=== PATIENT | female | born 1975 ===

== ENCOUNTER 2018-09-20 10:06 | Emergency (ER) | payer OTHER ==
[2018-09-20 10:12] VITALS: BMI 28.3
[2018-09-20 11:29] LABS: SQUAMOUS EPITHIAL 2 /hpf (0-5); URINE BILIRUBIN NEGATIVE (NEGATIVE); URINE BLOOD NEGATIVE (NEGATIVE); URINE CLARITY Clear (Clear); URINE COLOR Yellow (YELLOW); URINE GLUCOSE (UA) NORMAL (Normal); URINE LEUKOCYTE ESTERASE NEG Leu/uL (Negative); URINE PROTEIN NEGATIVE (NEGATIVE); URINE UROBILINOGEN NORMAL mg/dL (0.2-1.0)
--- NOTE | 2018-09-20 11:48 | C.PDOC ---
History Of Present Illness 42 y/o female presents to the ED complaining of pelvic pain for 1 week. Associated with 1 episode of clear vaginal discharge. She denies any vaginal bleeding, dysuria, fevers, or chills. Patient also reports increased urinary frequency. LMP was 08/09/18 however patient states normally her menstrual cycles are irregular. Pain is localized below the bladder area, sharp, intermittent, and crampy in nature. Time Seen by Provider: 09/20/18 10:44 Chief Complaint (Nursing): Female Genitourinary History Per: Patient History/Exam Limitations: no limitations Onset/Duration Of Symptoms: Days Current Symptoms Are (Timing): Still Present Past Medical History Reviewed: Historical Data, Nursing Documentation, Vital Signs Vital Signs: Last Vital Signs Temp 98.4 F 09/20/18 10:12 Pulse 97 H 09/20/18 10:12 Resp 18 09/20/18 10:12 BP 110/72 09/20/18 10:12 Pulse Ox 98 09/20/18 10:12 - Medical History Other PMH: Prolapsed mitral valve Surgical History: Family History: States: No Known Family Hx - Social History Hx Alcohol Use: Yes Hx Substance Use: No - Immunization History Hx Tetanus Toxoid Vaccination: No Hx Influenza Vaccination: No Hx Pneumococcal Vaccination: No Review Of Systems Except As Marked, All Systems Reviewed And Found Negative. Constitutional: Negative for: Fever, Chills Gastrointestinal: Positive for: Abdominal Pain Genitourinary: Positive for: Vaginal Discharge (x 1). Negative for: Dysuria, Vaginal Bleeding Physical Exam - Physical Exam Appears: Non-toxic, No Acute Distress Skin: Normal Color, Warm, Dry Head: Atraumatic, Normacephalic Eye(s): bilateral: Normal Inspection, PERRL, EOMI Oral Mucosa: Moist Neck: Normal ROM, Supple Chest: Symmetrical Cardiovascular: Rhythm Regular, No Murmur Respiratory: Normal Breath Sounds, No Accessory Muscle Use Gastrointestinal/Abdominal: Soft, Tenderness (across suprapubic area), No Guarding, No Rebound Back: Normal Inspection, No CVA Tenderness Pelvic: Normal External Exam, Cervical Motion Tenderness, No Enlarged Uterus Extremity: Bilateral: Atraumatic, Normal Color And Temperature, Normal ROM Neurological/Psych: Oriented x3, Normal Speech ED Course And Treatment O2 Sat by Pulse Oximetry: 98 (RA) Pulse Ox Interpretation: Normal Medical Decision Making Medical Decision Making: Impression: Suprapubic abdominal pain Plan: --Urinalysis --Urine culture --GC/chlamydia --Motrin 600 mg PO Patient will be treated empirically with 1000mg Zithro PO and 250mg IM Rocephin. Advised patient to call in 2-3 days for STI resuts. Patient is agreeable to discharge plan. Disposition Counseled Patient/Family Regarding: Studies Performed, Diagnosis, Need For Followup, Rx Given - [facility]position [facility] Disposition: HOME/ ROUTINE Disposition Time: 12:47 Condition: STABLE Additional Instructions: follow up with your doctor within 2 days call to make an appointment take medications as prescribed return to ER if symptoms worsens or progress Prescriptions: Naproxen [Naprosyn] 500 mg PO BID PRN #16 tab PRN Reason: Pain, Moderate (4-7) Instructions: Acute Pelvic Pain (DC) Forms: [facility] (Rwandan), General Discharge Instructions - Clinical Impression Clinical Impression: Pelvic pain - Scribe Statement The provider has reviewed the documentation as recorded by the Tee Soriano Provider Attestation: All medical record entries made by the Tee were at my direction and personally dictated by me. I have reviewed the chart and agree that the record accurately reflects my personal performance of the history, physical exam, medical decision making, and the department course for this patient. I have also personally directed, reviewed, and agree with the discharge instructions and disposition.
[2018-09-20] MEDS ORDERED: cefTRIAXone (Rocephin) 250 mg Inj IM STA (12:24)
[2018-09-20 12:34] VITALS: BP 102/67; PULSE 65; RESP 20; TEMP 98.5
[2018-09-20 12:49] VITALS: O2SAT 98
== END 2018-09-20 13:14 | disposition home or self-care (01) ==
LOC: C.ER 10:06
DX: R10.2 Pelvic and perineal pain (principal)
CPT/HCPCS: 81001; 87086; 87491; 87591; 96372; 99285; J0696

== ENCOUNTER 2019-01-21 08:52 | Emergency (ER) | payer OTHER ==
[2019-01-21 08:53] VITALS: BMI 28.3
[2019-01-21 08:59] VITALS: TEMP 98.7
[2019-01-21] MEDS ORDERED: Sodium Chloride 0.9% 1,000 ML IV ONE (09:22)
[2019-01-21 09:27] LABS: HCG,QUALITATIVE URINE NEGATIVE (NEGATIVE)
[2019-01-21 09:33] LABS: SQUAMOUS EPITHIAL 11 /hpf (0-5); URINE BACTERIA RARE (<OCC); URINE BILIRUBIN NEGATIVE (NEGATIVE); URINE BLOOD NEGATIVE (NEGATIVE); URINE CLARITY Hazy (Clear); URINE COLOR Yellow (YELLOW); URINE GLUCOSE (UA) NORMAL (Normal); URINE LEUKOCYTE ESTERASE NEG Leu/uL (Negative); URINE PROTEIN NEGATIVE (NEGATIVE); URINE UROBILINOGEN NORMAL mg/dL (0.2-1.0)
[2019-01-21] MEDS ORDERED: Sodium Chloride 0.9% 1,000 ML ONE (09:35)
[2019-01-21 09:44] LABS: BASO % 0.5 % (0.0-2.0); EOS # 0.1 K/uL (0.0-0.7); EOS % 1.9 % (0.0-4.0); HEMOGLOBIN 13.3 g/dL (11.0-16.0); LYMPH # 2.1 K/uL (1.0-4.3); LYMPH % 33.9 % (20.0-40.0); MEAN CELL VOLUME 87.3 fL (81.0-99.0); MEAN CORPUSCULAR HEMOGLOBIN 29.8 pg (27.0-31.0); MEAN CORPUSCULAR HGB CONC 34.2 g/dL (33.0-37.0); MEAN PLATELET VOLUME 10.1 fL (7.2-11.7); MONO # 0.3 K/uL (0.0-0.8); MONO % 4.8 % (0.0-10.0); NEUT # 3.7 K/uL (1.8-7.0); NEUT % 58.9 % (50.0-75.0); NRBC % 0.1 % (0.0-2.0); RBC 4.46 Mil/uL (3.80-5.20); WHITE BLOOD COUNT 6.3 K/uL (4.8-10.8)
[2019-01-21 10:10] LABS: ALB/GLOB RATIO 1.6 (1.0-2.1); ALBUMIN 4.3 g/dL (3.5-5.0); ALT/SGPT 15 U/L (9-52); AST/SGOT 18 U/L (14-36); BLOOD UREA NITROGEN 14 mg/dL (7-17); CALCIUM 9.3 mg/dl (8.6-10.4); GFR NON-AFRICAN AMERICAN > 60; LIPASE 72 U/L (23-300)
--- NOTE | 2019-01-21 10:12 | C.PDOC ---
History Of Present Illness 43 y/o female presents to the ED complaining of nausea, vomiting, and epigastric pain for 3 days. She describes epigastric pain that radiates to her back as well as diffuse body aches. Otherwise patient denies chest pain, SOB, fever, dysuria, hematuria, vaginal discharge, unusual food intake, or known sick contacts. Time Seen by Provider: 01/21/19 08:56 Chief Complaint (Nursing): Abdominal Pain History Per: Patient History/Exam Limitations: no limitations Onset/Duration Of Symptoms: Days (x 3) Current Symptoms Are (Timing): Still Present Location Of Pain/Discomfort: Epigastric Radiation Of Pain To:: Back Quality Of Discomfort: "Pain" Associated Symptoms: Nausea, Vomiting Past Medical History Reviewed: Historical Data, Nursing Documentation, Vital Signs Vital Signs: Last Vital Signs Temp 98.7 F 01/21/19 08:56 Pulse 87 01/21/19 08:56 Resp 18 01/21/19 08:56 BP 104/72 01/21/19 08:56 Pulse Ox 100 01/21/19 08:56 - Medical History PMH: Mitral Valve Prolapse Surgical History: Family History: States: No Known Family Hx - Social History Hx Alcohol Use: Yes Hx Substance Use: No - Immunization History Hx Tetanus Toxoid Vaccination: No Hx Influenza Vaccination: No Hx Pneumococcal Vaccination: No Review Of Systems Constitutional: Negative for: Fever, Chills Cardiovascular: Negative for: Chest Pain Respiratory: Negative for: Shortness of Breath Gastrointestinal: Positive for: Nausea, Vomiting, Abdominal Pain. Negative for: Diarrhea Genitourinary: Negative for: Dysuria, Frequency, Incontinence, Hematuria Musculoskeletal: Positive for: Back Pain Neurological: Negative for: Weakness, Numbness Physical Exam - Physical Exam Appears: Well, Non-toxic, Other (Appears mildly uncomfortable) Skin: Normal Color, Warm, No Rash Head: Normacephalic Eye(s): bilateral: Normal Inspection Oral Mucosa: Moist Cardiovascular: Rhythm Regular, No Murmur Respiratory: Normal Breath Sounds, No Accessory Muscle Use Gastrointestinal/Abdominal: Bowel Sounds, Soft, Tenderness (Epigastric and LLQ tenderness, (-) McBurneys, (-) [place] sign), No Distention, No Guarding, No Rebound Back: Normal Inspection, No CVA Tenderness, No Vertebral Tenderness Extremity: Bilateral: Atraumatic, Normal Color And Temperature Neurological/Psych: Oriented x3 ED Course And Treatment - Laboratory Results Result Diagrams: 01/21/19 09:32 01/21/19 09:32 Lab Results: Urine Color Yellow (YELLOW) 01/21/19 09:15 Urine Clarity Hazy (Clear) 01/21/19 09:15 Urine pH 5.0 (5.0-8.0) 01/21/19 09:15 Ur Specific Caroleen 1.017 (1.003-1.030) 01/21/19 09:15 Urine Protein Negative mg/dL (NEGATIVE) 01/21/19 09:15 Urine Glucose (UA) Normal mg/dL (Normal) 01/21/19 09:15 Urine Ketones Negative mg/dL (NEGATIVE) 01/21/19 09:15 Urine Blood Negative (NEGATIVE) 01/21/19 09:15 Urine Nitrate Negative (NEGATIVE) 01/21/19 09:15 Urine Bilirubin Negative (NEGATIVE) 01/21/19 09:15 Urine Urobilinogen Normal mg/dL (0.2-1.0) 01/21/19 09:15 Ur Leukocyte Esterase Neg [place]/uL (Negative) 01/21/19 09:15 Urine WBC (Auto) 1 /hpf (0-5) 01/21/19 09:15 Urine RBC (Auto) 1 /hpf (0-3) 01/21/19 09:15 Ur Squamous Epith Cells 11 /hpf (0-5) H 01/21/19 09:15 Urine Bacteria Rare (<OCC) 01/21/19 09:15 Urine HCG, Qual Negative (NEGATIVE) 01/21/19 09:15 Urine HCG, Qual Negative (NEGATIVE) 01/21/19 09:15 ECG: Interpreted By Me, Viewed By Me (NSR 67 bpm, normal axis, no acute ST/T wave changes) ECG Interpretation: Normal O2 Sat by Pulse Oximetry: 100 (on RA) Pulse Ox Interpretation: Normal Progress Note: EKG done at triage. Blood work, UA, Upreg ordered and reviewed. Patient given 4 mg IV Zofran, 40 mg IV protonix, and NS IVF x 1 bolus. Reevaluation Time: 10:30 Reassessment Condition: Improved (Patient reassessed, is resting comfortably and states she feels better. On exam, abdomen is soft and nontender. Rxs for Zofran and Bentyl given. Patient instructed to follow up with PMD/clinic in 1-2 days, and understands she should return to ED if symptoms worsen.) Disposition Counseled Patient/Family Regarding: Studies Performed, Diagnosis, Need For Followup, Rx Given - Disposition Referrals: [facility] [Outside] Disposition: HOME/ ROUTINE Disposition Time: 10:30 Condition: STABLE Additional Instructions: FOLLOW UP WITH YOUR DOCTOR/CLINIC IN 1-2 DAYS USE MEDICATIONS NEEDED DRINK PLENTY OF CLEAR FLUIDS RETURN TO EMERGENCY ROOM IF YOUR SYMPTOMS BECOME WORSE SEGUIR CON JOHNSON MDICO / CLNICA EN 1-2 CHAUHAN UTILICE MEDICAMENTOS [place] SE NECESITE BEBER MUCHOS FLUIDOS SWEETIE VUELVA A LA JEWEL DE EMERGENCIA SI HILARY SNTOMAS SE HACEN PE[place] Prescriptions: Dicyclomine [Bentyl] 20 mg PO Q6 PRN #15 tab PRN Reason: ABDOMINAL CRAMPING Ondansetron ODT [Zofran ODT] 1 odt PO BID PRN #15 odt PRN Reason: Nausea/Vomiting Instructions: Diarrhea and Traveler's Diarrhea, Adult (DC), Nausea and Vomiting, Adult (DC) Forms: [facility] (Yakut) Print Language: TAJIK - Clinical Impression Clinical Impression: Vomiting, Diarrhea, Nausea - Scribe Statement The provider has reviewed the documentation as recorded by the Tee Soriano Provider Attestation: All medical record entries made by the Tee were at my direction and personally dictated by me. I have reviewed the chart and agree that the record accurately reflects my personal performance of the history, physical exam, medical decision making, and the department course for this patient. I have also personally directed, reviewed, and agree with the discharge instructions and disposition.
[2019-01-21 10:26] VITALS: RESP 20
[2019-01-21 10:57] VITALS: BP 104/68; PULSE 65
--- NOTE | 2019-01-22 18:43 | CARD ---
APPROVED REPORT Date of service: 01/21/2019 EKG Measurement Heart [id number] <Conclusion> Normal sinus rhythm Low voltage QRS Borderline ECG
[2019-01-24 09:02] VITALS: O2SAT 100
== END 2019-01-21 10:57 | disposition home or self-care (01) ==
LOC: C.ER 08:52
DX: R11.2 Nausea with vomiting, unspecified (principal); R19.7 Diarrhea, unspecified
CPT/HCPCS: 80053; 81001; 81025; 83690; 84703; 85025; 93005; 96361; 96374; 96375; 99285; C9113; J2405; J7030

== ENCOUNTER 2019-01-26 15:28 | Emergency (ER) | payer SELFPAY ==
[2019-01-26 15:28] VITALS: BMI 28.3
[2019-01-26] MEDS ORDERED: Magnesium Citrate Oral SOL (300 ml) PO ONE (16:48)
--- NOTE | 2019-01-26 16:54 | C.PDOC ---
History Of Present Illness 43 years old female with PMHx of mitral valve prolapse presents to ED for complaints of abdominal pain and distention, constipation that began 5 days ago. Patient reports she was seen here 1 week ago for complaints of nausea, vomiting, and diarrhea but she was prescribed zofran and bentyl and sent home; however, patient reports she hasn't had a bowel movement since. Patient reports " I feel bloated, distended with tender to touch, and full of gas." Patient denies taking any medication for constipation. Denies any other complaints. Time Seen by Provider: 01/26/19 16:17 Chief Complaint (Nursing): Abdominal Pain History Per: Patient History/Exam Limitations: no limitations Onset/Duration Of Symptoms: Days Current Symptoms Are (Timing): Still Present Location Of Pain/Discomfort: Diffuse, LLQ Radiation Of Pain To:: Back Associated Symptoms: Constipation. denies: Fever, Chills Exacerbating Factors: None Alleviating Factors: None Last Bowel Movement: Days Ago Recent travel outside of the [place]: No Abnormal Vaginal Bleeding: No Past Medical History Reviewed: Historical Data, Nursing Documentation, Vital Signs Vital Signs: Last Vital Signs Temp 98.3 F 01/26/19 15:48 Pulse 85 01/26/19 15:48 Resp 20 01/26/19 15:48 BP 114/75 01/26/19 15:48 Pulse Ox 99 01/26/19 15:48 - Medical History PMH: Mitral Valve Prolapse Surgical History: Family History: States: Unknown Family Hx - Social History Hx Alcohol Use: Yes Hx Substance Use: No - Immunization History Hx Tetanus Toxoid Vaccination: No Hx Influenza Vaccination: Yes Hx Pneumococcal Vaccination: No Review Of Systems Except As Marked, All Systems Reviewed And Found Negative. Constitutional: Negative for: Fever, Chills Gastrointestinal: Positive for: Abdominal Pain, Constipation. Negative for: Nausea, Vomiting, Diarrhea Skin: Negative for: Rash Neurological: Negative for: Weakness, Numbness Physical Exam - Physical Exam Appears: Non-toxic, No Acute Distress Skin: Normal Color, Warm, Dry, No Rash Eye(s): bilateral: Normal Inspection, PERRL, EOMI Oral Mucosa: Moist Neck: Normal ROM, Supple Chest: Symmetrical, No Tenderness Cardiovascular: Rhythm Regular Respiratory: Normal Breath Sounds, No Rales, No Rhonchi, No Wheezing Gastrointestinal/Abdominal: Soft, Tenderness (Diffuse ) Neurological/Psych: Oriented x3, Normal Speech Gait: Steady ED Course And Treatment O2 Sat by Pulse Oximetry: 99 (RA) Pulse Ox Interpretation: Normal - Other Rad Abdomen X-Ray X-Ray: Viewed By Me, Read By Radiologist Interpretation: Date of service: 01/26/2019. HISTORY: abdominal pain and distention. COMPARISON: None available. TECHNIQUE: Two views obtained. FINDINGS: BOWEL: Mild retained feces. No hepatic or splenic enlargement. No evidence of bowel obstruction. No masses or abnormal calcifications. BONES: Normal. OTHER FINDINGS: None. IMPRESSION: No active disease. Medical Decision Making Medical Decision Making: Plan: * Magnisium * Phosphate * Abdomen X-Ray * POC urine test Patient was given fleet enema and citrate of mag but she decided she wanted to take the medications at home and left prior to receiving her discharge papers. Disposition - Disposition Disposition: HOME/ ROUTINE Disposition Time: 17:58 Condition: STABLE Forms: [facility] (Guatemalan), General Discharge Instructions - Clinical Impression Clinical Impression: Abdominal pain, Constipation - Scribe Statement The provider has reviewed the documentation as recorded by the Ldibxiomy Perez All medical record entries made by the Ldibxiomy were at my direction and personally dictated by me. I have reviewed the chart and agree that the record accurately reflects my personal performance of the history, physical exam, medical decision making, and the department course for this patient. I have also personally directed, reviewed, and agree with the discharge instructions and disposition.
--- NOTE | 2019-01-26 17:27 | RAD ---
Date of service: 01/26/2019 HISTORY: abdominal pain and distention COMPARISON: None available. TECHNIQUE: Two views obtained. FINDINGS: BOWEL: Mild retained feces. No hepatic or splenic enlargement. No evidence of bowel obstruction. No masses or abnormal calcifications. BONES: Normal. OTHER FINDINGS: None. IMPRESSION: No active disease.
[2019-01-26] MEDS ORDERED: Magnesium Citrate Oral SOL (300 ml) ONE (17:47)
[2019-01-26 18:02] VITALS: BP 121/73; PULSE 79; RESP 18; TEMP 98.1
[2019-01-26 18:03] VITALS: O2SAT 99
== END 2019-01-26 18:32 | disposition home or self-care (01) ==
LOC: C.ER 15:28
DX: K59.00 Constipation, unspecified (principal); R10.32 Left lower quadrant pain